=== PATIENT | female | born 1970 | race African-American/Black ===

== ENCOUNTER 2021-11-02 18:44 | Emergency (ER) | payer OTHER ==
[~2021-11-02] VITALS: Ht 162.6 cm; Wt 104.0 kg
[2021-11-02] MEDS ORDERED: IBUPROFEN 400MG TABLET PO ONE ×2 (19:15→20:30)
[2021-11-02] MEDS ORDERED: ACETAMINOPHEN 325MG TABLET PO ONE ×2 (19:15→20:30)
[2021-11-02] MEDS ORDERED: IBUP-2028 MT (21:25)
[2021-11-02] MEDS ORDERED: TOPUD PO (21:25)
[2021-11-02 21:35] VITALS: BP 188/109
== END 2021-11-02 21:35 | disposition home or self-care (01) ==
LOC: ER 18:44
DX: M79.631 Pain in right forearm (principal); M25.571 Pain in right ankle and joints of right foot; I10 Essential (primary) hypertension; H54.62 Unqualified visual loss, left eye, normal vision right eye; W22.8XXA Striking against or struck by other objects, initial encounter; Y93.89 Activity, other specified; Y92.018 Other place in single-family (private) house as the place of occurrence of the external cause
CPT/HCPCS: 73090; 73110; 73590; 73610; 73630; 99284